=== PATIENT | female | born 1970 | race Caucasian/White ===

== ENCOUNTER 2017-05-31 09:07 | Day surgery (SDC) | payer BC ==
[2017-05-31] MEDS ORDERED: Clindamycin 900 MG IVPREMIX(* 900 MG/50 ML SDV IV ONE (09:41)
[2017-05-31] MEDS ORDERED: Midazolam* 1 MG/ML 2 ML VIAL (2 MG) ONE ×2 (10:32→11:13)
[2017-05-31] MEDS ORDERED: fentaNYL* 50 MCG/ML 2 ML VIAL (100 MCG VIAL) ONE (10:32)
[2017-05-31] MEDS ORDERED: Bupivacaine 0.25% SDV* 30 ML ONE (10:47)
[2017-05-31] MEDS ORDERED: Bupivacaine 0.5% SDV PF* 10-30ML VIAL ONE (11:08)
[2017-05-31] MEDS ORDERED: Dexamethasone IV* 4 MG/ML 1 ML (4 MG) ONE (11:34)
[2017-05-31] MEDS ORDERED: Propofol* 10 MG/ML 20 ML BTL IV PUSH ONE (11:34)
[2017-05-31] MEDS ORDERED: Famotidine IV* 10 MG/ML 2 ML (20 mg) ONE (11:34)
[2017-05-31] MEDS ORDERED: Ketorolac INJ* 30 MG/ML 1 ML VIAL ONE (11:34)
[2017-05-31] MEDS ORDERED: Ondansetron INJ* 2 MG/ML VIAL ONE (11:34)
[2017-05-31] MEDS ORDERED: Naloxone* 0.4 MG/ML 1 ML VIAL IV PRN (12:34)
[2017-05-31] MEDS ORDERED: HYDROcodone/ACETAMIN 5-325 MG* 1 TAB PO PRN (12:34)
[2017-05-31] MEDS ORDERED: fentaNYL* 50 MCG/ML 2 ML VIAL (100 MCG VIAL) IV PRN (12:34)
[2017-05-31] MEDS ORDERED: Acetaminophen TAB* 325 MG PO PRN (12:34)
[2017-05-31] MEDS ORDERED: Ondansetron INJ* 2 MG/ML VIAL IV PRN (12:34)
[2017-05-31] MEDS ORDERED: DiMENhydriNATE IV* 50 MG/ML VIAL IV PUSH PRN (12:34)
[2017-05-31] MEDS ORDERED: PROCHLORPERAZINE INJ 5 MG/ML 2 ML VIAL IV PRN (12:34)
[2017-05-31 14:41] VITALS: BP 130/66
--- NOTE | 2017-06-01 07:29 | RAD ---
INDICATION: Right wrist traumatic fracture operative reduction and internal fixation. COMPARISON: Comparison is made with a prior x-ray study of the right wrist from May 26, 2017. TECHNIQUE: 37 seconds of intermittent fluoroscopic guidance were provided and 6 spot films of the right wrist were obtained in the operating room. FINDINGS: The patient is status post operative reduction internal fixation of a comminuted intra-articular fracture of the distal radius of the right wrist. There is a metallic plate present along the volar aspect of the distal radius transfixed with multiple screws spanning the fracture fragments which are improved in alignment and positioning. IMPRESSION: INTRAOPERATIVE CONTROL FILMS. CPT II Codes: 6045F
--- NOTE | 2017-06-01 14:25 | OP ---
DATE OF OPERATION: 05/31/17 - [facility] DATE OF : 70 SURGEON: Jeffry Hernandez MD PHOTOENGRAVING ETCHER APPRENTICE: HENRY Booker. An surgical services assistant was needed for the entirety of the procedure to aid in positioning of the arm and retraction. ANESTHESIOLOGIST: Dr. Mo. ANESTHESIA: Peripheral nerve block plus general. PRE-OP DIAGNOSIS: Left intra-articular, greater than 3 fragments, distal radius fracture. POST-OP DIAGNOSIS: Left intra-articular, greater than 3 fragments, distal radius fracture. OPERATIVE PROCEDURE: Open reduction internal fixation, left intra-articular, greater than three fragments distal radius fracture. INDICATIONS: Dolores is a 46-year-old female who fell and fractured both distal radii. The left was minimally displaced and so we decided to treat that nonoperatively. The right was impacted, had lost its length and so we had talked too about doing an open reduction internal fixation on that wrist. She understood the risks and benefits including the risk of stiffness, risk of persistent pain. She wanted to proceed with surgery. ESTIMATED BLOOD LOSS: 5 mL. COMPLICATIONS: None. FINDINGS: As expected. DESCRIPTION OF PROCEDURE: Dolores was seen in the preoperative holding area. The correct side, site, and procedure were identified. She came back to the operating room where a block was performed. Anesthesia was induced and then the arm was prepped and draped in the usual fashion. I began by exsanguinating the arm with the Esmarch and the tourniquet was inflated to 250 mmHg. Incision was made over the distal FCR tendon. The FCR tendon sheath was released. The tendon was retracted and the subsheath was released. The pronator quadratus was released just off the radial margin of the radius and T'd back transversely distally preserving the distal 3 to 4 mm of volar capsular ligaments. The fracture was then identified. It was mobilized and reduced. The volar ulnar fragment was held with one K-wire. The radial styloid was clamped into place. The Synthes variable angle distal radius plate was then brought in and placed in appropriate position. This was pinned into place and one 2.4 mm cortical screw was placed in the oblong hole proximally. The plate was in good position and so I went ahead and placed combination of variable angle and nominal angle locking screws in the distal row. A second radial styloid screw was placed as well. At this point, I checked my final alignment. Everything was looking good , so I placed my two remaining 2.4 mm cortical screws proximally. I had the hand in 10 pounds of traction throughout the procedure. After the screws were in place, the traction was let off. The final fluoroscopic imaging was checked. Things were looking good, so we went ahead and irrigated out the wound. The pronator was reapproximated with 3-0 Vicryl suture. The subcutaneous tissue was reapproximated with 3-0 Vicryl suture. Skin was closed with 4-0 Monocryl suture and Steri-Strips. The operative area was infiltrated with bit more 0.25% plain Marcaine at the request of the anesthesiologist. The wound was dressed with 4x4, sterile Webril and a volar cockup wrist splint was applied. Tourniquet was deflated. The hand pinked up immediately. She was taken to the recovery room in stable condition. [id number]/[facility] #: [id number] MTDD
== END 2017-05-31 14:42 | disposition home or self-care (01) ==
LOC: OR 09:07
PROVIDERS: ATTEND Orthopaedic Surgery Hand Surgery
DX: S52.571A Other intraarticular fracture of lower end of right radius, initial encounter for closed fracture (principal); W00.9XXA Unspecified fall due to ice and snow, initial encounter; Y92.9 Unspecified place or not applicable; I34.1 Nonrheumatic mitral (valve) prolapse; R00.1 Bradycardia, unspecified; G89.18 Other acute postprocedural pain
CPT/HCPCS: C1713; C1776; J1100; J1885; J2250; J2405; J2704; J3010

== ENCOUNTER → 2017-10-27 06:19 | Day surgery (SDC) | payer BC, OTHER ==
[~2017-10-27 06:19] MED LIST: Acetaminophen TAB* 325 MG ONE; Acetaminophen TAB* 325 MG PO ONE; Acetaminophen TAB* 325 MG PO PRN; Bupivacaine 0.5% PF 10 ML VIAL INJ ONE; Dexamethasone IV* 4 MG/ML 1 ML (4 MG) ONE; DiMENhydriNATE IV* 50 MG/ML VIAL IV PUSH PRN; Famotidine IV* 10 MG/ML 2 ML (20 mg) ONE; Gabapentin CAP(*) 300 MG ONE; Gabapentin CAP(*) 300 MG PO ONE; HYDROcodone/ACETAMIN 5-325 MG* 1 TAB PO PRN; Ketorolac INJ* 30 MG/ML 1 ML VIAL ONE; Midazolam* 1 MG/ML 2 ML VIAL (2 MG) ONE; Nalbuphine* 10 MG/ML 1 ML VIAL IV PRN; Naloxone* 0.4 MG/ML 1 ML VIAL IV PRN; Ondansetron INJ* 2 MG/ML VIAL IV PRN; Ondansetron INJ* 2 MG/ML VIAL ONE; PROCHLORPERAZINE INJ 5 MG/ML 2 ML VIAL IV PRN; Propofol* 10 MG/ML 20 ML BTL IV PUSH ONE; Rocuronium* 10 MG/ML VIAL ONE; Scopolamine 1.5 mg* PATCH TRANSDERM PRN; Scopolamine PATCH Remove* 1 NOTE MISC PATCH OFF ONE; ceFOXitin 2 GM IVPREMIX* 2 GM/50 ML BAG ONE; diPHENhydraMINE IV* 50 MG/ML 1 ml VIAL (BENADRYL) IV PRN; fentaNYL* 50 MCG/ML 2 ML VIAL (100 MCG VIAL) IV PRN; fentaNYL* 50 MCG/ML 2 ML VIAL (100 MCG VIAL) ONE
[2017-10-27 10:20] VITALS: BP 106/63
--- NOTE | 2017-11-06 01:37 | OP ---
OPERATIVE REPORT: DATE OF OPERATION: 10/27/17. DATE OF : 70. SURGEON: Basil Liu MD. FRUIT SPRAYER: Janet Terry MD. ANESTHESIA: General anesthetic with endotracheal intubation. PRE-OP DIAGNOSIS: Left adnexal cystic ovarian mass. POST-OP DIAGNOSIS: Left adnexal cystic ovarian mass. OPERATIVE PROCEDURE: Left laparoscopic salpingo-oophorectomy. ESTIMATED BLOOD LOSS: None. SPECIMENS SENT TO PATHOLOGY: Left tube and ovary. FLUIDS: She received 1 liter of IV crystalloid fluid. URINE OUTPUT: 200 cc of clear urine. FINDINGS: The patient was noted to have a left cystic ovarian mass with multiple cysts [facility] ed. The right tube and ovary were within normal limits. Left tube was also normal. There was jania l bowel and bladder and normal uterus. DESCRIPTION OF PROCEDURE: The patient was taken to the operating room where she was identified. She was placed on the operating table where a general anesthetic with endotracheal intubation was obtain ed without difficulty. She was then placed in the dorsal lithotomy position, prepped and draped in n ormal sterile fashion. Attention was then brought onto the patient's perineum where the bladder was c atheterized with a Marie catheter and drained of urine and through the vagina a sponge stick was intr oduced to be later used to mobilize the uterus. Attention was then brought onto the patient's abdome n where a 1-cm infraumbilical skin incision was made with a knife, carried through to the underlying layer of fascia. The fascia was then brought with a Tony clamp brought up to the incision, incised medially, extended laterally about 1 cm using a [place] clamp. The Tony clamp and the fascia were t hen replaced with 0 Polysorb suture and through his incision a 10- mm blunt trocar was introduced. T he balloon in the trocar was insufflated with 20 cc of air. The gas was then attached to the trocar. The abdomen was insufflated with CO2 gas. The patient's pelvic anatomy noted findings as described above. At this point, 2 other trocars were introduced 1 at 4 cm above the symphysis pubis and a sec ond trocar in the patient's right upper quadrant of the abdomen. This was done the patient under ane sthesia, through these trocars, a blunt grasper was introduced suprapubically. The fallopian tube wa s grasped on left side. The infundibulopelvic ligament was identified. A LigaSure device was then u sed to clamp the LigaSure. The infundibulopelvic ligament at its most proximal attachment to the ova ry. This was then coagulated with LigaSure and transected. Once the infundibulopelvic ligament was transected and coagulated, the utero-ovarian ligament was also grasped with a LigaSure coagulated and transected and both the ovary and fallopian tube were removed with coagulation and sharp dissection using a LigaSure ligament. The left adnexa was then removed from the patient's abdomen using an Endo bag under direct visualization and was removed from the umbilical trocar. The specimen was then sent to pathology. At this point, the operative sites were noted to be completely hemostatic. The pelvi s was irrigated with normal saline and the irrigation fluid was suctioned. All the trocars were then removed from the patient's abdomen as well as CO2 gas. The fascia was closed with 0- Polysorb sutur e in running fashion and the rest of the incisions were closed with 4- 0 Monocryl subcuticular stitch es. The sponge stick in the vagina was removed, as well as the Marie catheter. Sponge, lap and need le counts were correct x2. The patient was then transferred to recovery room area after awakening fr om general anesthesia. There were no complications. [id number]/[facility] #: [id number]
== END | disposition home or self-care (01) ==
LOC: OR 06:19
PROVIDERS: ATTEND Obstetrics & Gynecology
DX: N83.292 Other ovarian cyst, left side (principal); N92.1 Excessive and frequent menstruation with irregular cycle; Z88.0 Allergy status to penicillin; I34.1 Nonrheumatic mitral (valve) prolapse; R00.1 Bradycardia, unspecified; I95.9 Hypotension, unspecified
CPT/HCPCS: 88305; A9270-GY; J0694; J1100; J1885; J2250; J2405; J2704; J3010